=== PATIENT | male | born 1945 | race Caucasian/White ===

== ENCOUNTER → 2020-09-16 | Outpatient (CLI) | payer OTHER ==
[~2020-09-16] MED LIST: ALLOPURINOL 10100 M3 PO; MEDICAL MARIJUANA; MITIGARE0.6 MG PO; NORCO5 PO; PRESERVISION T1 EACH PO; RENA-VITE RX T1 EACH PO; RENVELA0.8 GM PO
== END ==
LOC: M.LAB 08:12
PROVIDERS: ATTEND Surgery
DX: Z01.812 Encounter for preprocedural laboratory examination (principal); Z20.822 Contact with and (suspected) exposure to COVID-19; N18.6 End stage renal disease

== ENCOUNTER → 2020-09-18 | Day surgery (SDC) | payer OTHER ==
--- NOTE | ~2020-09-18 | OP ---
[facility] [address] [place] [address] OPERATIVE REPORT Name: JARED PRESTON Room: [facility] Deondre.#: [id number] Admission: 09/18/20 Attend Phys: Jaswinder Dyson Discharge: Date of : 43 Report #: [id number] THIS REPORT FOR: cc: Adolph Pierre MD, Paul M. MD Patterson, Jonathan D. MD ~ DATE OF SERVICE: 09/18/2020 PREOPERATIVE DIAGNOSIS: End-stage renal disease. POSTOPERATIVE DIAGNOSIS: End-stage renal disease. OPERATION: 1. Removal of tunneled central venous catheter without subcutaneous port greater than age 5. 2. Laparoscopic placement of tunneled intraperitoneal catheter. 3. Laparoscopic omentopexy. SURGEON: Jaswinder Dyson MD. ANESTHESIA: General. ESTIMATED BLOOD LOSS: Minimal. SPECIMEN: None. DESCRIPTION OF PROCEDURE: After informed consent was obtained, the patient was brought to the operating room and placed supine. SCDs were placed and working, preoperative antibiotics were administered, general anesthesia was induced. The neck and abdomen were prepped and draped in the usual sterile fashion. Attention was then directed to the right neck. The external cuff site was palpable over the right clavicle. A 0.75 cm counter incision was made over this cuff. It was freed up bluntly. The catheter then slid out very easily. Sterile dressings were applied. The counterincision was closed with a 4-0 Monocryl single suture. The abdomen was then prepped and draped in the usual sterile fashion. A 5 mm incision was made in the left upper quadrant. A 5 mm trocar was placed under direct vision. Pneumoperitoneum was established. A left lower quadrant 5 mm trocar was placed. A left-sided 5 mm trocar was placed. The omentum was grasped and retracted up to the right upper quadrant. A suture passer was used to pass a 2-0 Vicryl suture through the omentum and then back out through the skin. This performed [facility] [address] [place] [address] OPERATIVE REPORT Name: JARED PRESTON Room: [facility] De[facility]re.#: [id number] Admission: 09/18/20 Attend Phys: Jaswinder Dyson Discharge: Date of : 43 Report #: [id number] the omentopexy. An 8 mm trocar was placed in the left rectus sheath, 2 cm above the umbilicus. A 62 cm catheter was placed through the trocar. The catheter was then tunneled to the left upper quadrant of the abdomen. It flushed easily with 1000 mL heparinized normal saline. 500 mL drained out very easily. The skin was then closed with 4-0 Monocryl. Incisions were dressed with Steri-Strips and gauze. A nonocclusive dressing was placed over the catheter. COMPLICATIONS: None. DISPOSITION: The patient was taken to recovery in satisfactory condition. By: [id number] Dyson MD /diomedes
[2020-09-18 12:38] LABS: HEMATOCRIT 35.4 % (42.0-52.0); HEMOGLOBIN 11.6 gm/dL (14.0-18.0); MCH 29.9 pg (26.0-34.0); MCHC 32.7 g/dL (28.0-37.0); MCV 91.6 fL (80.0-100.0); MPV 7.6 fl. (7.2-11.1); RBC 3.87 mil/uL (4.50-6.00); RDW-CV 18.3 % (10.5-14.5)
[2020-09-18 12:48] LABS: CALCIUM 9.3 mg/dL (8.5-10.1); CREATININE 4.4 mg/dL (0.6-1.3); POTASSIUM 4.3 mmol/L (3.5-5.1)
--- NOTE | 2020-09-18 13:31 | EKG ---
[place] [address] ELECTROCARDIOGRAM REPORT Name: JARED PRESTON Room: [facility].#: [id number] Admission: 09/18/20 Attend Phys: Jaswinder Schrader Discharge: Date of : 43 Date of Service: 09/18/20 1242 Report #: [id number] THIS REPORT FOR: //name// [facility] Test Date: 2020-09-18 Test Time: 12:42:31 Pat Name: JARED PRESTON Department: Room: Gender: [employer] Manager: : 1945 Requested By: Jaswinder Dyson Order Number: [id number] Oscar MD: Mohit Mock Measurements Intervals [place] Rate: 90 P: 67 MD: 164 QRS: 73 QRSD: 97 T: 81 QT: 394 QTc: 482 Interpretive Statements Sinus rhythm ST elevation, consider early repolarization Borderline prolonged QT interval No previous ECG available for comparison Electronically Signed On 09-18-2020 13:31:20 CDT by Mohit Mock [email or web address] <ELECTRONICALLY SIGNED> By: Mohit Mock MD, [facility] 09/18/20 1331 1242 124 Mohit Mock MD, [facility] /EPI
== END | disposition home or self-care (01) ==
LOC: M.SUR 09:00
PROVIDERS: ATTEND Surgery
DX: N18.6 End stage renal disease (principal); Z99.2 Dependence on renal dialysis; Z98.890 Other specified postprocedural states; Z20.822 Contact with and (suspected) exposure to COVID-19

== ENCOUNTER → 2020-10-16 | Day surgery (SDC) | payer OTHER ==
--- NOTE | ~2020-10-16 | OP ---
[facility] [address] [place] [address] OPERATIVE REPORT Name: JARED PRESTON Room: [facility] M.Rosita.#: [id number] Admission: 10/16/20 Attend Phys: Jaswinder Dyson Discharge: Date of : 43 Report #: [id number] THIS REPORT FOR: cc: Adolph Pierre MD, Paul M. MD Patterson, Jonathan D. MD ~ DOC #: [id number] Jaswinder Dyson MD DATE OF SURGERY: 10/16/2020 PREOPERATIVE DIAGNOSIS: End-stage renal disease with malfunctioning peritoneal catheter. POSTOPERATIVE DIAGNOSIS: End-stage renal disease with malfunctioning peritoneal catheter. OPERATION: Diagnostic laparoscopy with revision of peritoneal catheter with removal of obstructive material. SURGEON: Jaswinder Dyson MD ANESTHESIA: General. ESTIMATED BLOOD LOSS: Minimal. SPECIMEN: None. DESCRIPTION OF PROCEDURE: After informed consent was obtained, the patient was brought to the operating room and placed supine. SCDs were placed and working. Preoperative antibiotics were administered. General anesthesia was induced. The abdomen was prepped and draped in the usual sterile fashion. A 5 mm incision was made in the left upper quadrant. A 5 mm trocar was placed under direct vision. Pneumoperitoneum was established. Left-sided 5 mm trocar was placed. The catheter was examined. It was stuck in a loop of bowel in the left upper quadrant. It was removed from this and placed down into the pelvis into its normal position. I then removed obstructing material with hydrostatic pressure. The catheter was then flushed easily with heparinized saline and drained as well. Approximately 300 mL of heparinized saline was left in the abdomen. The ports were removed under direct vision. The skin was closed with 4-0 Monocryl. Incisions were sealed with Steri-Strips. COMPLICATIONS: None. DISPOSITION: The patient was taken to [place] [address] OPERATIVE REPORT Name: JARED PRESTON Room: [facility]#: [id number] Admission: 10/16/20 Attend Phys: Jaswinder Dyson Discharge: Date of : 43 Report #: [id number] MD JACE Alvarez/AMARILIS By: [id number] 1728Jaswinder Dyson MD /nt
[2020-10-16 14:30] LABS: HEMATOCRIT 36.9 % (42.0-52.0); HEMOGLOBIN 11.7 gm/dL (14.0-18.0); MCH 30.1 pg (26.0-34.0); MCHC 31.7 g/dL (28.0-37.0); RBC 3.88 mil/uL (4.50-6.00); RDW-CV 17.4 % (10.5-14.5); WBC 8.1 thou/uL (4.0-11.0)
[2020-10-16 14:37] LABS: CALCIUM 9.5 mg/dL (8.5-10.1); CREATININE 4.1 mg/dL (0.6-1.3); POTASSIUM 4.4 mmol/L (3.5-5.1)
== END | disposition home or self-care (01) ==
LOC: M.SUR 13:17
PROVIDERS: ATTEND Surgery
DX: T85.691A Other mechanical complication of intraperitoneal dialysis catheter, initial encounter (principal); N18.6 End stage renal disease; Z79.899 Other long term (current) drug therapy; Z98.890 Other specified postprocedural states; Z20.822 Contact with and (suspected) exposure to COVID-19; Z99.2 Dependence on renal dialysis; Y83.8 Other surgical procedures as the cause of abnormal reaction of the patient, or of later complication, without mention of misadventure at the time of the procedure

== ENCOUNTER → 2020-11-11 | Day surgery (SDC) | payer OTHER ==
[2020-11-11 07:05] LABS: MCH 30.7 pg (26.0-34.0); MCHC 32.3 g/dL (28.0-37.0); MCV 95.2 fL (80.0-100.0); MPV 7.3 fl. (7.2-11.1); RBC 3.26 mil/uL (4.50-6.00); RDW-CV 16.6 % (10.5-14.5); WBC 11.2 thou/uL (4.0-11.0)
[2020-11-11 07:12] LABS: CALCIUM 8.2 mg/dL (8.5-10.1); CREATININE 4.6 mg/dL (0.6-1.3); POTASSIUM 4.6 mmol/L (3.5-5.1)
--- NOTE | 2020-11-11 10:47 | OP ---
[facility] [address] [place] [address] OPERATIVE REPORT Name: JARED PRESTON JR Room: [facility].#: [id number] Admission: 11/11/20 Attend Phys: Jaswinder Dyson Discharge: Date of : 43 Report #: [id number] THIS REPORT FOR: cc: Adolph Pierre MD, Paul M. MD Patterson, Jonathan D. MD ~ DOC #: [id number] Jaswinder Dyson MD DATE OF SURGERY: 11/11/2020 PREOPERATIVE DIAGNOSIS: End-stage renal disease. POSTOPERATIVE DIAGNOSIS: End-stage renal disease. PROCEDURE: Removal of the tunneled intraperitoneal catheter. SURGEON: Jaswinder Dyson MD. ANESTHESIA: General. ESTIMATED BLOOD LOSS: Minimal. SPECIMENS: None. DESCRIPTION OF PROCEDURE: After informed consent was obtained, the patient was brought to the operating room and placed supine. SCDs were placed and working, preoperative antibiotics were administered, general anesthesia was induced. The abdomen was prepped and draped in the usual sterile fashion. A 10 mm incision was made around the exit site. The external cuff was freed up bluntly. I was able to also reach the internal cuff through this incision. It was freed up easily. The catheter was then removed. The skin was closed with 4-0 Monocryl. Incision was dressed with Steri-Strips. COMPLICATIONS: None. DISPOSITION: The patient was taken to recovery in satisfactory condition. Jaswinder Dyson MD JDP/NIS <ELECTRONICALLY SIGNED> By: Jaswinder Dyson MD 11/11/20 1047 0854 [id number] Dyson MD /nt
== END | disposition home or self-care (01) ==
LOC: M.SUR 05:56
PROVIDERS: ATTEND Surgery
DX: N18.6 End stage renal disease (principal); Z98.890 Other specified postprocedural states; Z79.899 Other long term (current) drug therapy; Z20.822 Contact with and (suspected) exposure to COVID-19